=== PATIENT | male | born 1945 | race Caucasian/White ===

== ENCOUNTER 2016-06-03 16:28 | Inpatient (IN) | payer MEDICAID, OTHER ==
[~2016-06-03] VITALS: Ht 147.3 cm; Wt 60.0 kg
[~2016-06-03 16:28] MED LIST: ALBU8.5H3 INH; ASPI-664 PO; BEN25 PO; BUPR-34 PO; BUTA1CAP38 PO; CALC500T99 PO; CHLO15MO MM; CHOL2000 PO; CITA-104 PO; CLON0.5T4 PO; CRES10 PO; CYAN100080 PO; DICL100G37 TOP; DIPH1TAB25 PO; GABA-526 PO; GLUC1CAP48 PO; LIDO700A6 TD; LISI40TA9 PO; MORP60TA37 PO; PANT40TA3 PO; PRED50 PO; PROM6.2514 PO; TIOT18CA IH; TRAZ150T65 PO; TRIUMEQ PO
[2016-06-03] MEDS ORDERED: NITROGLYCERIN 2% 1 GM OINT PKT TD STA (17:40)
[2016-06-03] MEDS ORDERED: ASPIRIN 81 MG TAB PO STA (17:40)
[2016-06-03] MEDS: NITROGLYCERIN (SL) 0.4 MG TAB SL PRN ×2 (17:58→18:06)
[2016-06-03 18:09] LABS: CHLORIDE 103 mmol/L (97-110); POTASSIUM 3.7 mmol/L (3.5-5.1); SODIUM 138 mmol/L (135-144)
[2016-06-03 18:10] LABS: INR 0.97; PROTIME 12.9 Sec (12.2-14.2)
[2016-06-03 18:11] LABS: PARTIAL THROMBOPLASTIN TIME 36.5 Sec (25.0-35.0)
[2016-06-03 18:12] LABS: ANION GAP 17 (8-16); BLOOD UREA NITROGEN 25 mg/dl (7-20); CALCIUM 8.7 mg/dl (8.4-10.2); CARBON DIOXIDE 22 mmol/L (21-31); CREATININE 1.19 mg/dl (0.61-1.24); GLUCOSE 90 mg/dl (70-220)
[2016-06-03] MEDS ORDERED: ABAC1TAB12 PO (18:21)
[2016-06-03] MEDS ORDERED: VITA1TAB83 PO (18:23)
[2016-06-03] MEDS ORDERED: CITA-104 PO (18:23)
[2016-06-03 18:24] LABS: EOSINOPHILS # 0.5 10^3/ul (0.0-0.5); EOSINOPHILS % 5.6 % (0.0-7.0); HEMATOCRIT 36.4 % (42.0-52.0); HEMOGLOBIN 12.1 g/dl (14.0-18.0); LYMPHOCYTES # 1.9 10^3/ul (0.8-2.9); LYMPHOCYTES % 23.1 % (15.0-51.0); MEAN CORPUSCULAR HEMOGLOBIN 31.2 pg (29.0-33.0); MEAN CORPUSCULAR HGB CONC 33.3 g/dl (32.0-37.0); MEAN CORPUSCULAR VOLUME 93.8 fl (82.0-101.0); MEAN PLATELET VOLUME 7.3 fl (7.4-10.4); MONOCYTE # 0.3 10^3/ul (0.3-0.9); MONOCYTES % 3.2 % (0.0-11.0); NEUTROPHIL # 5.6 10^3/ul (1.6-7.5); NEUTROPHILS % 68.1 % (39.0-77.0); PLATELET COUNT 281 10^3/UL (140-440); RED BLOOD COUNT 3.88 10^6/ul (4.70-6.10); UNCORRECTED WBC 8.3 10^3/ul (4.8-10.8); WHITE BLOOD COUNT 8.3 10^3/ul (4.8-10.8)
[2016-06-03] MEDS ORDERED: HYDR12.58 PO (18:24)
[2016-06-03] MEDS ORDERED: LORA10TA3 PO (18:24)
[2016-06-03] MEDS ORDERED: SOLI5TAB5 PO (18:24)
[2016-06-03] MEDS ORDERED: TOPI100T42 PO (18:25)
[2016-06-03] MEDS ORDERED: ONDA4TAB8 PO (18:26)
[2016-06-03] MEDS ORDERED: ROSU20TA PO (18:26)
[2016-06-03 18:27] LABS: CONDITION 1
[2016-06-03] MEDS ORDERED: OXYC15TA PO (18:27)
[2016-06-03] MEDS ORDERED: OMEG-135 PO (18:28)
[2016-06-03] MEDS ORDERED: MORP-58 PO (18:28)
[2016-06-03] MEDS ORDERED: BENA40TA41 PO (18:29)
[2016-06-03] MEDS ORDERED: MIRT15TA5 PO (18:29)
[2016-06-03] MEDS ORDERED: FLUC200T52 PO (18:30)
[2016-06-03 18:44] LABS: TROPONIN-I < 0.012 ng/ml (0.00-0.12)
--- NOTE | 2016-06-03 19:21 | RADRPT ---
PROCEDURE: XR Chest. CLINICAL INDICATION: Chest pain. TECHNIQUE: Single frontal chest x-ray. COMPARISON: None available. FINDINGS: The cardiomediastinal silhouette is unremarkable. Aortic atherosclerotic vascular calcifications are identified. There are bilateral low lung volumes with vascular crowding and mild bibasilar atelectasis. No pneum othorax, pleural effusion or consolidation is seen. No acute osseous abnormality is noted. IMPRESSION: 1. Low lung volumes with vascular crowding and mild bibasilar atelectasis. 2. Aortic atherosclerosis. RPTAT: HFN .Shelby Ellison MD, MD Date Time Electronically viewed and signed by .Shelby Ellison MD, MD on 06/03/2016 19:21 .N/
--- NOTE | 2016-06-03 20:28 | ERA ---
ER Documentation Chief Complaint Date/Time DATE: 06/03/16 TIME: 20:26 Chief Complaint SOB WITH MOD DISTRESS FOR 4 DAYS. GETTING WORSE TODAY.. HPI Patient is a 71-year-old female with hypertension, stroke, and smoking who presents with chest pain. The patient has 3 weeks of chest pain that has been worsening. Today the patient passed out. He has had nausea but no vomiting. The chest pain is midsternal. He is speaking in full sentences. Upon review of old medical records the patient one previous visit to the ER 2014. ROS All systems reviewed and are negative except as per history of present illness. Medications Home Meds Reported Medications Fluconazole* (Fluconazole*) 200 Mg Tablet, 200 MG PO Q7DAYS, TAB 06/03/16 Mirtazapine* (Mirtazapine*) 15 Mg Tablet, 15 MG PO HS, TAB 06/03/16 Benazepril Hcl* (Benazepril Hcl*) 40 Mg Tablet, 40 MG PO DAILY, #30 TAB 06/03/16 [place]-3 Fatty Acids/Fish Oil (Fish Oil 1,000 mg Capsule) 1 Each Capsule, 1 EACH PO BID, CAP 06/03/16 Morphine Sulfate* (Oramorph SR*) 30 Mg Tablet.sa, 30 MG PO QHS, TAB.SA 06/03/16 Oxycodone Hcl* (IR) (Oxycodone Hcl*) 15 Mg Tablet, 15 MG PO Q4H Y for PAIN, TAB 06/03/16 Ondansetron Hcl* (Zofran*) 4 Mg Tablet, 4 MG PO Q6H Y for NAUSEA AND OR VOMITING , TAB 06/03/16 Rosuvastatin Calcium* (Crestor*) 20 Mg Tablet, 20 MG PO DAILY, #30 TAB 06/03/16 Topiramate* (Topamax*) 100 Mg Tablet, 100 MG PO BID, TAB 06/03/16 Solifenacin* (Vesicare*) 5 Mg Tablet, 5 MG PO DAILY, TAB 06/03/16 Hydrochlorothiazide* (Hydrochlorothiazide*) 12.5 Mg Tablet, 12.5 MG PO QAM, #30 TAB 06/03/16 Loratadine* (Loratadine*) 10 Mg Tablet, 10 MG PO DAILY, #30 TAB 06/03/16 Citalopram Hydrobromide* (Citalopram Hydrobromide*) 40 Mg Tablet, 40 MG PO DAILY , #30 TAB 06/03/16 Vitamin B Complex (B Complex # 1) 1 Each Tablet, 1 EACH PO DAILY, TAB 06/03/16 Abacavir/Dolutegravir/Lamivudi (Triumeq Tablet) 1 Each Tablet, 1 EACH PO DAILY, TAB TRIUMEQ 600-50-300 MG 06/03/16 Bupropion Hcl* (Wellbutrin SR*) 150 Mg Tablet.sa, 150 MG PO QAM, TAB.SA 06/14/14 Pantoprazole* (Protonix*) 40 Mg Tablet.dr, 40 MG PO DAILY, TAB 06/14/14 Gabapentin* (Gabapentin*) 600 Mg Tablet, 1200 MG PO QHS Y for NERVE PAIN, TAB 06/14/14 Aspirin* (Aspirin* EC) 81 Mg Tablet.dr, 81 MG PO DAILY, TAB 06/14/14 Discontinued Reported Medications Promethazine Hcl* (Promethazine Hcl* Syrup) 6.25 Mg/5 Ml Syrup, 6.25 MG PO BID Y for COUGH, ML 06/14/14 Diphenoxylate Hcl-Atropine* (Lomotil*) 1 Tab Tab, 1-2 TAB PO EACH LOOSE STOOL Y for DIARRHEA, TAB 06/14/14 Morphine Sulfate* (Ms Contin*) 60 Mg Tablet.sa, 60 MG PO Q12 Y for SEVERE PAIN LEVEL 7-10, TAB.SA 06/14/14 Cholecalciferol* (Vitamin D3*) 2,000 Unit Cap, 2000 UNIT PO DAILY, CAP 06/14/14 Chlorhexidine Gluconate* (Peridex*) 480 Ml Mouthwash, 15 ML MM QID, ML 06/14/14 Rmtpltngvi-Fqzzzyyofbulf-Iottquga* (Fioricet*) 50-300-40 Mg Capsule, 1-2 CAP PO BID Y for MIGRANE, CAP 06/14/14 Diclofenac Sodium* (Voltaren* Gel) 1% -100 Gm Gel, 1 APPLIC TOP TID, TUB 06/14/14 Cyanocobalamin* (Vitamin B-12*) 1,000 Mcg Tablet.sa, 1000 MCG PO ONCE MONTHLY, TAB 06/14/14 Lidocaine 5%* (Lidoderm 5%*) 5% - Patch Adh..patch, 1 PATCH TD DAILY, PATCH 06/14/14 Tiotropium [place]* (Spiriva*) 18 Mcg Cap.w.dev, 1 INH IH DAILY, EA 06/14/14 Albuterol Sulfate* (Proair HFA*) 8.5 Gm Hfa.aer.ad, 2 PUFF INH Q4H Y for WHEEZING AND SOB, INH 06/14/14 Diphenhydramine Hcl* (Benadryl*) 25 Mg Cap, 1-2 MG PO QHS Y for ALLERGIC REACTION, CAP 06/14/14 Clonazepam* (Clonazepam*) 0.5 Mg Tablet, 1-2 MG PO BID Y for ANXIETY, TAB 06/14/14 Calcium Carbonate (Baae-Amw-688) 1 Tab Tablet, 1 TAB PO BID 06/14/14 Gluc 2KCL/Chondr/Ash Hy/Hy Ac (GLUCOSAMINE & CHONDROITIN CAP) 1 Each Capsule, 1 EACH PO TID Y for ARTHRITIS 06/14/14 Trazodone Hcl* (Trazodone Hcl*) 150 Mg Tablet, 225 MG PO QHS, TAB 06/14/14 Citalopram Hydrobromide* (Citalopram Hydrobromide*) 40 Mg Tablet, 40 MG PO DAILY , TAB 06/14/14 Rosuvastatin Calcium* (Crestor*) 10 Mg Tablet, 10 MG PO HS, TAB 06/14/14 Lisinopril* (Lisinopril*) 40 Mg Tablet, 40 MG PO DAILY, TAB 06/14/14 [Triumeq] No Conflict Check, PO DAILY for TRIUMEQ 600-50-300 06/14/14 Discontinued Scripts Prednisone (Prednisone) 50 Mg Tab, 50 MG PO DAILY for 7 Days, TAB Prov:RADHA ANNE MD 06/16/14 Allergies Allergies: Coded Allergies: No Known Drug Allergy (Verified Allergy, Severe, 06/03/16) PMhx/Soc History of Surgery: Yes (PROSTATE CA, ) Anesthesia Reaction: No Hx Neurological Disorder: Yes (BULGING DISC) Hx Respiratory Disorders: Yes (COPD) Hx Cardiac Disorders: Yes (S/P STROKE, HTN) Hx Psychiatric Problems: No Hx Miscellaneous Medical Probl: Yes (HIV) Hx Alcohol Use: No Hx Substance Use: No Hx Tobacco Use: Yes Smoking Status: Unknown if ever smoked FmHx Family History: coronary disease Physical Exam Vitals Vital Signs Date Time Temp Pulse Resp B/P Pulse Ox O2 Delivery O2 Flow Rate FiO2 06/03/16 18:32 97.3 82 20 119/73 99 Room Air Nasal Cannula 06/03/16 18:06 83 20 109/63 99 Nasal Cannula 2.0 06/03/16 17:55 Nasal Cannula 2 06/03/16 16:39 97.3 85 22 103/58 98 Physical Exam Const: No acute distress Head: Atraumatic Eyes: Normal Conjunctiva ENT: Normal External Ears, Nose and Mouth. Neck: Full range of motion..~ No meningismus. Resp: Clear to auscultation bilaterally Cardio: Regular rate and rhythm, no murmurs Abd: Soft, non tender, non distended. Normal bowel sounds Skin: No petechiae or rashes Back: No midline or flank tenderness Ext: No cyanosis, or edema Neur: Awake and alert Psych: Anxious Result Diagram: 06/03/16 1745 06/03/16 1745 Results 24 hrs Laboratory Tests Test 06/03/16 17:45 Activated Partial Thromboplast Time 36.5Sec Anion Gap 17 Basophils # 0.010^3/ul Basophils % 0.0% Blood Morphology Comment Blood Urea Nitrogen 25mg/dl Calcium Level 8.7mg/dl Carbon Dioxide Level 22mmol/L Chloride Level 103mmol/L Creatinine 1.19mg/dl Eosinophils # 0.510^3/ul Eosinophils % 5.6% Glucose Level 90mg/dl Hematocrit 36.4% Hemoglobin 12.1g/dl INR International Normalized Ratio 0.97 Lymphocytes # 1.910^3/ul Lymphocytes % 23.1% Mean Corpuscular Hemoglobin 31.2pg Mean Corpuscular Hemoglobin Concent 33.3g/dl Mean Corpuscular Volume 93.8fl Mean Platelet Volume 7.3fl Monocytes # 0.310^3/ul Monocytes % 3.2% Neutrophils # 5.610^3/ul Neutrophils % 68.1% Nucleated Red Blood Cells # 0.010^3/ul Nucleated Red Blood Cells % 0.0/100WBC Platelet Count 77879^3/UL Potassium Level 3.7mmol/L Prothrombin Time 12.9Sec Prothrombin Time Ratio 1.0 Red Blood Count 3.8810^6/ul Red Cell Distribution Width 14.0% Sodium Level 138mmol/L Troponin I < 0.012ng/ml White Blood Count 8.310^3/ul Current Medications Medications (Trade) Dose Ordered Sig/Renee Route PRN Reason Start Time Stop Time Status Last Admin Dose Admin Aspirin (Aspirin) 162 mg ONCE STAT PO 06/03/16 17:40 06/03/16 17:41 DC 06/03/16 17:57 Nitroglycerin (Nitroglycerin 2% Oint) 1 inch ONCE STAT TD 06/03/16 17:40 06/03/16 17:41 DC 06/03/16 17:58 Nitroglycerin (Nitroglycerin (Sl Tab) 0.4 Mg) 1 tab Q5M UP TO 3 DOSES PRN SL CHEST PAIN 06/03/16 18:00 Ondansetron HCl (Zofran Inj) 4 mg ER BRIDGE PRN IV NAUSEA AND/OR VOMITING 06/03/16 20:30 06/04/16 20:29 Acetaminophen (Tylenol Tab) 650 mg ER BRIDGE PRN PO MILD PAIN/FEVER 06/03/16 20:30 06/04/16 20:29 Lorazepam (Ativan) 1 mg ONCE ONCE IV 06/03/16 20:30 06/03/16 20:31 Procedures/MDM EKG read by me: Rate/Rhythm: Right bundle branch block at a rate of 82 Intervals: Normal Impression: Right bundle branch block without evidence of ischemia Chest x-ray shows no pneumonia or pneumothorax per radiology. Smoking Cessation Therapy: Pt. was lectured for greater than 3 minutes on the health risks of continued smoking and the benefits of cessation. Patient is a 8-year-old male presents with chest pain and syncope. The patient will need admission to a telemetry bed. I spoke with Dr. Acosta from the panel team for admission. The patient was given aspirin and nitroglycerin. He will be given Ativan for anxiety. At this point I doubt pneumonia, pneumothorax , pulmonary embolism, or aortic dissection. Departure Diagnosis: Primary Impression: Shortness of breath Additional Impressions: Chest pain Qualified Code: R07.9 - Chest pain, unspecified type Syncope Qualified Code: R55 - Syncope, unspecified syncope type Condition: NATALIA Colunga MD Jun 03, 2016 20:28
[2016-06-03] MEDS ORDERED: LORAZEPAM 2 MG INJ IV ONE (20:30)
[2016-06-03] MEDS ORDERED: ACETAMINOPHEN 325 MG TAB PO PRN ×2 (20:30→21:00)
[2016-06-03] MEDS ORDERED: ONDANSETRON 4 MG INJ IV PRN ×2 (20:30→21:00)
[2016-06-03] MEDS ORDERED: FAMOTIDINE 20 MG TAB PO SCH (21:00)
[2016-06-03] MEDS ORDERED: LORAZEPAM 2 MG INJ IV PRN ×2 (21:00→23:00)
[2016-06-03] MEDS ORDERED: GABAPENTIN 300 MG CAP PO PRN (21:00)
[2016-06-03] MEDS ORDERED: NITROGLYCERIN (SL) 0.4 MG TAB SL PRN (21:00)
[2016-06-03] MEDS ORDERED: ONDANSETRON 4 MG TAB PO PRN (21:00)
[2016-06-03] MEDS ORDERED: morphine 2 MG INJ IV PRN (21:00)
[2016-06-03] MEDS ORDERED: NACL 0.9% 3 ML SYG IV SCH (21:00)
[2016-06-03] MEDS ORDERED: oxyCODONE 15 MG TAB PO PRN (21:00)
[2016-06-03] MEDS ORDERED: DOCUSATE SODIUM 100 MG CAP PO PRN (21:00)
[2016-06-03] MEDS ORDERED: ZOLPIDEM 5 MG TAB PO PRN (21:00)
--- NOTE | 2016-06-03 21:01 | HP ---
Date/Time of Note Date/Time of Note DATE: 06/03/16 TIME: 20:48 Assessment/Plan VTE Prophylaxis VTE Prophylaxis Intervention: heparin Assessment/Plan Assessment/Plan 71 yo male with a past medical history HIV+ last CD4 840 (as per the patient), COPD, essential hypertension, dyslipidemia, CVA, prostate CA s/p radical prostatectomy, PUD, who presents with chest pain, shortness of breath and syncope. 1. Syncope - vasovagal vs ACS - will admit the patient to telemetry, cycle cardiac markers, check 2D ECHO, TSH/Mag level, morphine/oxygen/NTG SL/Aspirin, serial ekgs, carotid duplex, fall precautions. 2. Diarrhea - will check stool cultures, fecal leukocytes, Ova and parasites, Giardia, CMV, consult ID, check CT abd/pelvis (pending), hold antibiotics, check CDiff antigen 3. HIV + - continue with HAART therapy, check CD4 4. Essential hypertension - HCTZ, Benazepril, prn hydralazine for sbp >160 5. COPD - prn breathing treatments, stable currently 6. Dyslipidemia - hold statin 7. CVA - no residual weakness - ACEI, aspirin, hold statin 8. Prostate CA s/p radical prostatectomy - continue with vesicare 9. PUD - continue with PPI 10. GI ppx - protonix 11. DVT ppx - heparin answered all of his questions. as per clinical course. this history and physical took greater then 45 minutes to complete HPI/ROS Admit Date/Time Admit Date/Time 06/03/2016, 8:48 pm Hx of Present Illness 71 yo male with a past medical history HIV+ last CD4 840 (as per the patient), COPD, essential hypertension, dyslipidemia, CVA, prostate CA s/p radical prostatectomy, PUD, who presents with chest pain, shortness of breath and syncope. Patient states that today, he had two episodes where he lost consciousness, he does not know the length of time he was out. He also complains of substernal, non-radiating chest discomfort. 8/10 in intensity, pressure like sensation, came about when his friend stated that he might have an abdominal aneurysm. No alleviating or exacerbating factors. He claims to have diarrhea for the last three weeks, denies any sick contacts, or recent travel. Otherwise has dizziness, and headache, with constant movement. Denies any urinary irregularities, fevers/chills, or other constitutional symptoms. ED course; NTG, Aspirin, Ativan ROS 14 point review of systems completed, please refer to HPI for any positive findings PMH/Family/Social Past Medical History HIV, COPD, CVA, prostate CA s/p prostatectomy Medical History: coronary artery disease, high cholesterol, hypertension, peptic ulcer disease Past Surgical History s/p radical prostatectomy Family History Significant Family History: diabetes (father), other (mother diseased 1994) Social History Alcohol Use: none Smoking Status: Former smoker Drug Use: none Exam/Review of Systems Vital Signs Vitals Vital Signs Date Time Temp Pulse Resp B/P Pulse Ox O2 Delivery O2 Flow Rate FiO2 06/03/16 18:32 97.3 82 20 119/73 99 Room Air Nasal Cannula 06/03/16 18:06 2.0 Exam Exam Gen Luli: mild discomfort 2/2 to chest pain, AAOx4 HEENT: NC/AT, PERRLA, EOMI, no pharyngeal erythema, no tonsillar exudates, no lymphadenopathy, no JVD, no carotid bruits NECK: supple, no thyromegaly THORAX: symmetrical, no obvious deformities CV: S1S2, RRR, no M/G/R Lungs: CTAB no W/C/R/R Abd: soft, NT/ND, +BS, no rebound, no guarding, neg HSM EXT: no edema, no ecchymosis, no clubbing, FROM Neuro: CN II-XII grossly intact, no focal deficits Psych: anxious Skin: C/D/I Labs Result Diagram: 06/03/165 06/03/161744 Medications Medications Current Medications Lorazepam (Ativan) 0.5 mg Q6H PRN IV ANXIETY; Start 06/03/16 at 21:00; Status UNV Ondansetron HCl (Zofran Inj) 4 mg Q6H PRN IV NAUSEA AND/OR VOMITING; Start at 21:00; Status UNV Nitroglycerin (Nitroglycerin (Sl Tab) 0.4 Mg) 1 tab Q5M PRN SL CHEST PAIN; Start 06/03/16 at 21:00; Status UNV Acetaminophen (Tylenol Tab) 650 mg Q6H PRN PO PAIN LEVEL 1-3 OR FEVER; Start at 21:00; Status UNV Morphine Sulfate (morphine) 2 mg Q4H PRN IV PAIN LEVEL 7-10; Start 06/03/16 at 21:00; Status UNV Zolpidem Tartrate (Ambien) 5 mg QHS PRN PO INSOMNIA; Start 06/03/16 at 21:00; Status UNV Docusate Sodium (Colace) 100 mg Q12H PRN PO CONSTIPATION; Start 06/03/16 at 21: 00; Status UNV Famotidine (Pepcid) 20 mg Q12 PO ; Start 06/03/16 at 21:00; Status UNV Heparin Sodium (Porcine) (Heparin (5000 Units/0.5 ml)) 5,000 unit Q12 SC ; Start 06/03/16 at 21:00; Status UNV Aspirin (Halfprin) 81 mg DAILY PO ; Start 06/04/16 at 09:00; Status UNV Benazepril HCl (Lotensin) 40 mg DAILY PO ; Start 06/04/16 at 09:00; Status UNV Bupropion HCl (Wellbutrin Sr) 150 mg QAM PO ; Start 06/04/16 at 09:00; Status UNV Citalopram Hydrobromide (Celexa) 40 mg DAILY PO ; Start 06/04/16 at 09:00; Status UNV Fluconazole (Diflucan) 200 mg Q7D PO ; Start 06/03/16 at 21:00; Status UNV Gabapentin (Neurontin) 1,200 mg QHS PRN PO NERVE PAIN; Start 06/03/16 at 21:00 ; Status UNV Hydrochlorothiazide (Hydrochlorothiazide) 12.5 mg QAM PO ; Start 06/04/16 at 09: 00; Status UNV Loratadine (Claritin) 10 mg DAILY PO ; Start 06/04/16 at 09:00; Status UNV Mirtazapine (Remeron) 15 mg HS PO ; Start 06/03/16 at 21:00; Status UNV Morphine Sulfate (Ms Contin (Er)) 30 mg QHS PO ; Start 06/03/16 at 21:00; Status UNV Ondansetron HCl (Zofran Tab) 4 mg Q6H PRN PO NAUSEA AND/OR VOMITING; Start at 21:00; Status UNV Oxycodone HCl (Roxicodone) 15 mg Q4H PRN PO PAIN; Start 06/03/16 at 21:00; Status UNV Solifenacin (Vesicare) 5 mg DAILY PO ; Start 06/04/16 at 09:00; Status UNV Topiramate (Topamax) 100 mg BID PO ; Start 06/03/16 at 21:00; Status UNV Miscellaneous Information 1 each DAILY PO ; Start 06/04/16 at 09:00; Status UNV Miscellaneous Information 1 each BID PO ; Start 06/03/16 at 21:00; Status UNV Miscellaneous Information 20 mg DAILY PO ; Start 06/04/16 at 09:00; Status UNV Miscellaneous Information 1 each DAILY PO ; Start 06/04/16 at 09:00; Status UNV Procedures Procedures CXR IMPRESSION: 1. Low lung volumes with vascular crowding and mild bibasilar atelectasis. 2. Aortic atherosclerosis. HIMANSHU SALDAÑA MD Jun 03, 2016 21:00
[2016-06-03 22:33] LABS: CREATINE KINASE 373 IU/L (23-200)
[2016-06-03 22:34] LABS: CHOL/HDL RATIO 2.7 RATIO; MAGNESIUM 2.4 mg/dl (1.7-2.5)
[2016-06-03 22:53] LABS: CK-MB 5.71 ng/ml (0.0-2.4); TROPONIN-I < 0.012 ng/ml (0.00-0.12)
--- NOTE | 2016-06-03 22:58 | RADRPT ---
AMENDMENT: 06/03/2016 11:03:18 PM Arley Muñoz M.D Template Error : The study is limited. Only the right carotid artery was evaluated. Disregard the l ast sentence of the body report and last two impression as part of in the normal template which wer e not deleted. The correct impression is: 1. Less than 50% right internal carotid artery stenosis. 2. The left side was not evaluated due to patient cooperation. PROCEDURE: Carotid Doppler ultrasound CLINICAL INDICATION: Carotid stenosis. TECHNIQUE: Carotid duplex criteria: Multiple real time, landaverde scale, and color flow and spectral w aveform analysis Doppler ultrasound images of the carotid bifurcations were obtained. Measurements of carotid stenosis is based on peak systolic and diastolic velocity parameters that correlate the r esidual internal carotid diameter with [place] symptomatic carotid endarterectomy trial (NASC ET) based stenosis levels. COMPARISON: None. FINDINGS: The study is limited due to the patient's motion. Only the right carotid artery was evaluated. On the right, there is heterogeneous smooth plaque at the internal carotid artery bulb . Visual est imate of the plaque is less than 50%. The peak ICA velocity is 85.6 cm/sec. The ICA/CCA ratio there is 0.93. There is no spectral broadening . The external carotid artery is patent. The vertebral artery was not visualized. The left internal carotid artery was not visualized. The external carotid artery is patent. The vertebral artery has antegrade flow. IMPRESSION: 1. Less than 50% stenosis of the right internal carotid artery. 2. Less than 50% stenosis of the left internal carotid artery. 3. Antegrade flow in the vertebral arteries. Physician Day Date Time Electronically viewed and signed by Physician Day on 06/03/2016 23:03 TATUM/
[2016-06-03 23:06] LABS: THYROID STIMULATING HORMONE 1.44 MIU/L (0.465-4.680)
[2016-06-03] MEDS: HEPARIN 5,000 UNIT/0.5 ML SYG SC SCH (23:39)
[2016-06-03] MEDS ORDERED: HALOPERIDOL 5 MG INJ ONE (23:49)
--- NOTE | 2016-06-03 23:50 | RADRPT ---
PROCEDURE: CT ABDOMEN/PELVIS WITHOUT CONTRAST CLINICAL INDICATION: 71-year-old male with abdominal pain and diarrhea. TECHNIQUE: The study was performed utilizing a [employer] VCT 64-slice CT scanner. Direct axia l sections were obtained through the abdomen and pelvis without the use of intravenous contrast mate rial. Sagittal and coronal reformations were obtained. The images were reviewed on a PACS workstatio n. CTD/vol = 11.3 mGy; Total Exam DLP = 676.6 mGy-cm. COMPARISON: None. FINDINGS: There is motion/respiratory artifact limiting the evaluation. Extensive coronary artery calcificati ons are seen. The lung bases are unremarkable. There is no evidence for significant pleural effusi on. The liver has a normal size and contour without focal areas of abnormal density. No intrahepati c nor extrahepatic biliary ductal dilatation is seen. The gallbladder demonstrates no wall thickenin g nor pericholecystic fluid. No biliary stones are evident. The pancreas is without areas of abnorma l attenuation. This spleen is identified and has a normal size without abnormal density. The adrena l glands are unremarkable. The kidneys are without abnormal density. No hydroureteronephrosis nor ne phroureterolithiasis is evident. The urinary bladder is distended with urine. There is retained stoo l identified throughout the colon most prominently within the ascending and transverse colon without gross bowel obstruction. The appendix is not visualized however there is no periappendiceal inflammatory changes. There is no significant free fluid. The aortoiliac vessels are diffusely calci fied with focal mid abdominal aortic aneurysmal dilatation measuring 3.3 x 3.1 cm and distal abdomin al aortic aneurysmal dilatation measuring 3.1 x 3.1 cm. Degenerative changes are present throughout the spine. IMPRESSION: 1. Limited evaluation secondary to motion/respiratory artifact. 2. Coronary artery calcifications. 3. Retained stool throughout the colon without gross bowel obstruction. 4. Focal mid abdominal and distal abdominal aortic aneurysms with maximal transverse dimensions of 3.3 and 3.1 cm respectively. 5. Degenerative changes within the spine. .Marcus Rodas MD, Date Time Electronically viewed and signed by .Marcus Rodas MD, on 06/03/2016 23:50 .[place]
[2016-06-03 23:57] VITALS: TEMP 98
[2016-06-04] VITALS (11 sets, daily range): BP systolic 92–111; BP diastolic 60–70; PULSE 68–89; RESP 18–20; Ht 147.3 cm; Wt 60.0 kg
[2016-06-04] MEDS ORDERED: HALOPERIDOL 5 MG INJ IM ONE ×2
[2016-06-04] MEDS: MIRTAZAPINE 15 MG TAB PO SCH ×2 (00:30→20:45)
[2016-06-04] MEDS: morphine (ER) 30 MG TAB PO SCH ×2 (00:30→20:56)
[2016-06-04] MEDS: TOPIRAMATE 100 MG TAB PO SCH ×3 (00:30→20:44)
[2016-06-04] MEDS: FISH OIL 1,000 MG CAP PO SCH ×3 (01:00→20:45)
[2016-06-04 01:25] LABS: CREATINE KINASE 400 IU/L (23-200)
[2016-06-04 01:37] LABS: CK-MB 5.87 ng/ml (0.0-2.4)
[2016-06-04 01:43] LABS: TROPONIN-I < 0.012 ng/ml (0.00-0.12)
[2016-06-04] MEDS: PANTOPRAZOLE 40 MG INJ IV SCH (06:32)
[2016-06-04 07:22] LABS: POTASSIUM 4.1 mmol/L (3.5-5.1)
[2016-06-04 07:25] LABS: CALCIUM 9.2 mg/dl (8.4-10.2); CREATININE 1.21 mg/dl (0.61-1.24)
[2016-06-04 07:31] LABS: BASOPHILS % 0.7 % (0.0-2.0); EOSINOPHILS # 0.5 10^3/ul (0.0-0.5); EOSINOPHILS % 7.8 % (0.0-7.0); HEMATOCRIT 36.2 % (42.0-52.0); HEMOGLOBIN 12.5 g/dl (14.0-18.0); LYMPHOCYTES # 1.6 10^3/ul (0.8-2.9); LYMPHOCYTES % 24.1 % (15.0-51.0); MEAN CORPUSCULAR HEMOGLOBIN 32.6 pg (29.0-33.0); MEAN CORPUSCULAR HGB CONC 34.6 g/dl (32.0-37.0); MEAN CORPUSCULAR VOLUME 94.3 fl (82.0-101.0); MEAN PLATELET VOLUME 7.6 fl (7.4-10.4); MONOCYTE # 0.6 10^3/ul (0.3-0.9); MONOCYTES % 8.7 % (0.0-11.0); NEUTROPHILS % 58.7 % (39.0-77.0); PLATELET COUNT 255 10^3/UL (140-440); RED BLOOD COUNT 3.84 10^6/ul (4.70-6.10); RED CELL DISTRIBUTION WIDTH 13.8 % (11.5-14.5); UNCORRECTED WBC 6.8 10^3/ul (4.8-10.8); WHITE BLOOD COUNT 6.8 10^3/ul (4.8-10.8)
[2016-06-04 07:46] LABS: CONDITION 1
[2016-06-04 08:01] LABS: CREATINE KINASE 472 IU/L (23-200)
[2016-06-04 08:07] LABS: CK-MB 5.38 ng/ml (0.0-2.4)
[2016-06-04 08:10] LABS: TROPONIN-I < 0.012 ng/ml (0.00-0.12)
[2016-06-04] MEDS: BENAZEPRIL 40 MG TAB PO SCH (09:00)
[2016-06-04] MEDS: HYDROCHLOROTHIAZIDE 12.5 MG CAP PO SCH (09:00)
[2016-06-04] MEDS: ASPIRIN (EC) 81 MG TAB PO SCH (09:17)
[2016-06-04] MEDS: LORATADINE 10 MG TAB PO SCH (09:17)
[2016-06-04] MEDS: CITALOPRAM 20 MG TAB PO SCH (09:17)
[2016-06-04] MEDS: HEPARIN 5,000 UNIT/0.5 ML SYG SC SCH ×2 (09:23→20:54)
[2016-06-04] MEDS: BUPROPION (SR) 150 MG TAB PO SCH (11:57)
[2016-06-04] MEDS: VITAMIN B COMPLEX/VIT C CAP PO SCH (11:57)
[2016-06-04] MEDS: SOLIFENACIN 5 MG TAB PO SCH (11:57)
[2016-06-04] MEDS: DOLUTEGRAVIR SODIUM 50 MG TABLET PO SCH ×2 (11:57→20:47)
--- NOTE | 2016-06-04 13:27 | CONS ---
DATE OF ADMISSION: 06/03/2016 DATE OF CONSULTATION: 06/04/2016 TYPE OF CONSULTATION: Infectious Disease. REASON FOR CONSULTATION: Antibiotic management. HISTORY OF PRESENT ILLNESS: Jose is a 71-year-old male, with a past history of HIV positive, cherrie rojas CD4 840, as per patient, who comes in now with chest pain, shortness of breath and syncope. His past problems include: 1. HIV. 2. COPD. 3. Essential hypertension. 4. Dyslipidemia. 5. CVA. 6. Prostate CA, status post radical prostatectomy. 7. Peptic ulcer disease. The patient presents with chest pain, shortness of breath and syncope. On the day of admission, he had 2 episodes where he lost consciousness. He also complains of substernal, nonradiating chest dis comfort, 8/10 in intensity, pressure-like sensations which came about when his friend stated that he might have an abdominal aneurysm. Has had diarrhea for the last 3 weeks. Denies any sick contacts . Denies any urinary irregularities, fevers or chills. PAST MEDICAL HISTORY: As outlined. He has coronary artery disease, hypercholesterolemia, as well a s hypertension and peptic ulcer disease. PAST SURGICAL HISTORY: Status post prostatectomy. FAMILY HISTORY: His father had diabetes. SOCIAL HISTORY: He is a former smoker, he does not drink or abuse drugs. ALLERGIES: NONE TO PENICILLIN, SULFA OR FOODS. MEDICATIONS: Per chart. REVIEW OF SYSTEMS: As per HPI. PHYSICAL EXAMINATION GENERAL: The patient is a well-developed, well-nourished male, alert, responsive, in no acute distr ess. VITAL SIGNS: Stable. He is afebrile. SKIN: Without generalized rash. HEENT: Within normal limits. NECK: Supple. LYMPHATIC: Lymph nodes, none palpable. CHEST: Decreased breath sounds at the bases. HEART: Without murmur or gallop. ABDOMEN: Soft, nontender, without organosplenomegaly or masses. EXTREMITIES: Without cyanosis, clubbing or edema. RECTAL: Deferred. GENITAL: Deferred. NEUROLOGIC: No focal neurological abnormalities. ANCILLARY LABORATORY DATA: White count is 8.3; H and H of 12.1 and 36.4; platelet count 281,000. B UN and creatinine are 25/1.19. CHEST X-RAY: Shows low volume with vascular crowding. ASSESSMENT: The patient is having diarrhea. We will check stool cultures, fecal leukocytes, ova an d parasites, Giardia, cytomegalovirus. ID was asked to consult. A CT scan of the abdomen and pelvi s was ordered and shows limited evaluation, secondary motion respiratory artifact, coronary artery c alcifications, retained stool, focal mid-abdominal and distal abdominal aortic aneurysms with gris l transverse dimensions of 3.3 and 3.1, respectively. Degenerative changes within the spine. PLAN: We will observe the patient currently off antibiotic therapy. Await workup in terms of his d iarrhea. Make sure he is on appropriate antivirals. Right now, he is on Tivicay or dolutegravir 50 mg a day and he is also on Epzicom or abacavir/lamivudine. I will dictate my findings to the hospitalist. Dictated By: DANTE DUONG MD, JD/NATALIA Conf#: [id number] DID#: [id number]
--- NOTE | 2016-06-04 13:30 | RADRPT ---
Echocardiogram Report Patient Name: NADINE YANEZ Gender: Male Date: 1945 Study Date: 04-Jun-2016 Dry Cleaner Helper: Teo Massey [facility] Location: 524 Ref. Physician: HIMANSHU SALDAÑA Quality: Good Procedures: Transthoracic echocardiogram with complete 2D, M-Mode, and doppler examination. Indications: Chest Pain. 2D/M Mode Doppler Measurement Value Normal Ranges Measurement Value Normal Ranges LVIDd 2D 4.8 3.5 - 5.6 cm AV Peak Cheo 1.1 m/sec LVIDs 2D 1.7 2.1 - 4.1 cm AV Peak PG 5.3 mmHg LVPWd 2D 0.8 0.6 - 1.1 cm LVOT Peak Cheo 1.0 m/sec IVSd 2D 0.8 0.6 - 1.1 cm LVOT Peak PG 3.7 mmHg AoR Diam 2D 3.3 2.0 - 3.7 cm MV E Peak Cheo 0.5 m/sec EDV 2D 107.3 cm3 MV A Peak Cheo 0.8 m/sec ESV 2D 5.0 cm3 MV E/A 0.7 LA Dimen 2D 3.5 2.3 - 4.0 cm MV Decel Time 220 msec MV Decel [place] 2 MV E/A 0.7 TR Peak Cheo 1.5 m/sec TR Peak PG 8.9 mmHg RVSP 12.0 mmHg Findings Left Ventricle: Normal left ventricular systolic function. Normal left ventricular cavity size. Normal left ventricular wall thickness. Ejection fraction is visually estimated at 6065 %. Tissue Doppler/Mitral Doppler indices are consistent with impaired relaxation (Stage I diastolic dysfunction). Right Ventricle: Normal right ventricular size. Normal right ventricular systolic function. Left Atrium: The left atrium is normal in size. Right Atrium: The right atrium is normal in size. Mitral Valve: Normal appearance and function of the mitral valve with trace physiologic regurgitation. Aortic Valve: Normal appearance of the aortic valve. No significant aortic stenosis or insufficiency. Tricuspid Valve: Normal appearance of the tricuspid valve. Estimated peak PA systolic pressure 12 mmHg. There is trace tricuspid regurgitation. Pericardium: Normal pericardium with no significant pericardial effusion. Aorta: Normal aortic root. IVC: Normal size and normal respiratory collapse consistent with normal right atrial pressure. Conclusions 1.The left ventricle is normal in size and systolic function. 2.Estimated left ventricular ejection fraction of 60-65%. 3.Mild left ventricular diastolic dysfunction. Electronically Signed By: Filipe Downing 04-Jun-2016 13:30:22 -0800 Patient Name: NADINE YANEZ Study Date: 04-Jun-2016 [id number]
--- NOTE | 2016-06-04 14:48 | PN ---
Date/Time of Note Date/Time of Note DATE: 06/04/16 TIME: 14:43 Assessment/Plan VTE Prophylaxis VTE Prophylaxis Intervention: LMWH Lines/Catheters IV Catheter Type (from Nrs): Saline Lock Urinary Cath still in place: No Assessment/Plan Assessment/Plan 1. Syncope, cardiolology consult 2. Abdominal pain, constipation related, laxatives 3. HIV + - continue with HAART therapy, check CD4 4. Essential hypertension - HCTZ, Benazepril, prn hydralazine for sbp >160 5. COPD - prn breathing treatments, stable currently 6. Dyslipidemia - hold statin 7. CVA - no residual weakness - ACEI, aspirin, hold statin 8. Prostate CA s/p radical prostatectomy - continue with vesicare 9. PUD - continue with PPI 10. AAA, follow up with PCP Subjective 24 Hr Interval Summary Free Text/Dictation Jonathan episodes of loss of consciousness while he was watching TV, unknown how long it was. He had diffuse abdominal pain, vomited once, no diarrhea. no fever or chills Exam/Review of Systems Vital Signs Vitals Vital Signs Date Time Temp Pulse Resp B/P Pulse Ox O2 Delivery O2 Flow Rate FiO2 06/04/16 12:20 72 06/04/16 11:00 98.0 20 105/70 96 06/04/16 01:00 Nasal Cannula 2.0 Intake and Output 06/03/16 06/03/16 06/04/16 15:00 23:00 07:00 Intake Total 0 ml Balance 0 ml Exam Constitutional: alert, oriented, well developed Psych: nl mood/affect, no complaints Head: atraumatic, normocephalic Eyes: EOMI, nl conjunctiva, nl lids ENMT: mucosa pink and moist, nl external ears & nose, nl lips & teeth, nl nasal mucosa & septum Neck: non-tender, supple Respiratory: clear to auscultation, normal air movement, No congested cough, No diminished breath sounds, No intercostal retraction, No labored breathing, No respirations, No tactile fremitus, No wheezing Cardiovascular: nl pulses, other, regular rate and rhythm, No S3, No S4, No bruits, No diastolic murmur, No edema, No gallop, No irregular rhythm, No jugular venous distention (JVD), No murmurs/extra sounds, No rub, No systolic murmur Gastrointestinal: nl liver, spleen, non-tender, soft, tender (diffuse mild tenderness), No ascites, No bowel sounds, No distended, No firm, No hepatomegaly, No mass , No rebound or guarding, No splenomegaly, No surgical scars Musculoskeletal: nl extremities to inspection Extremities: normal pulses Neurological: RE EXAMINER II-XII intact, nl mental status, nl speech, nl strength Skin: nl turgor, rash or lesions Results Result Diagram: 06/04/1660606/04/16606 Results 24 hrs Laboratory Tests Test 06/03/16 17:45 06/03/16 20:59 06/04/16 00:35 06/04/16 06:07 Activated Partial Thromboplast Time 36.5 H Anion Gap 17 H 15 Basophils # 0.0 0.0 Basophils % 0.0 0.7 Blood Morphology Comment Blood Urea Nitrogen 25 H 23 H Calcium Level 8.7 9.2 Carbon Dioxide Level 22 23 Chloride Level 103 110 Creatinine 1.19 1.21 Eosinophils # 0.5 0.5 Eosinophils % 5.6 7.8 H Glucose Level 90 90 Hematocrit 36.4 L 36.2 L Hemoglobin 12.1 L 12.5 L INR International Normalized Ratio 0.97 Lymphocytes # 1.9 1.6 Lymphocytes % 23.1 24.1 Mean Corpuscular Hemoglobin 31.2 32.6 Mean Corpuscular Hemoglobin Concent 33.3 34.6 Mean Corpuscular Volume 93.8 94.3 Mean Platelet Volume 7.3 L 7.6 Monocytes # 0.3 0.6 Monocytes % 3.2 8.7 Neutrophils # 5.6 4.0 Neutrophils % 68.1 58.7 Nucleated Red Blood Cells # 0.0 0.0 Nucleated Red Blood Cells % 0.0 0.0 Platelet Count 281 255 Potassium Level 3.7 4.1 Prothrombin Time 12.9 Prothrombin Time Ratio 1.0 Red Blood Count 3.88 L 3.84 L Red Cell Distribution Width 14.0 13.8 Sodium Level 138 144 Troponin I < 0.012 < 0.012 < 0.012 < 0.012 White Blood Count 8.3 6.8 Cholesterol Level 144 Cholesterol/HDL Ratio 2.7 Creatine Kinase 373 H 400 H 472 H Creatine Kinase Index 1.5 1.5 1.1 Creatinine Kinase MB (Mass) 5.71 H 5.87 H 5.38 H HDL Cholesterol 52 Hemoglobin A1c 5.6 LDL Cholesterol, Calculated 78 Magnesium Level 2.4 Thyroid Stimulating Hormone (TSH) 1.440 Triglycerides Level 68 Medications Medications Current Medications Ondansetron HCl (Zofran Inj) 4 mg Q6H PRN IV NAUSEA AND/OR VOMITING; Start at 21:00 Nitroglycerin (Nitroglycerin (Sl Tab) 0.4 Mg) 1 tab Q5M PRN SL CHEST PAIN; Start 06/03/16 at 21:00 Acetaminophen (Tylenol Tab) 650 mg Q6H PRN PO PAIN LEVEL 1-3 OR FEVER; Start at 21:00 Morphine Sulfate (morphine) 2 mg Q4H PRN IV PAIN LEVEL 7-10; Start 06/03/16 at 21:00 Zolpidem Tartrate (Ambien) 5 mg QHS PRN PO INSOMNIA; Start 06/03/16 at 21:00 Docusate Sodium (Colace) 100 mg Q12H PRN PO CONSTIPATION; Start 06/03/16 at 21: 00 Heparin Sodium (Porcine) (Heparin (5000 Units/0.5 ml)) 5,000 unit Q12 SC Last administered on 06/04/16 09:23; Admin Dose 5,000 UNIT; Start 06/03/16 at 21:00 Aspirin (Halfprin) 81 mg DAILY PO Last administered on 06/04/16 09:17; Admin Dose 81 MG; Start 06/04/16 at 09:00 Benazepril HCl (Lotensin) 40 mg DAILY PO ; Start 06/04/16 at 09:00 Bupropion HCl (Wellbutrin Sr) 150 mg QAM PO Last administered on 06/04/16 11: 57; Admin Dose 150 MG; Start 06/04/16 at 09:00 Citalopram Hydrobromide (Celexa) 40 mg DAILY PO Last administered on 06/04/16 09:17; Admin Dose 40 MG; Start 06/04/16 at 09:00 Fluconazole (Diflucan) 200 mg Q7D PO ; Start 06/03/16 at 21:00; Status UNV Gabapentin (Neurontin) 1,200 mg QHS PRN PO NERVE PAIN; Start 06/03/16 at 21:00 Hydrochlorothiazide (Hydrochlorothiazide) 12.5 mg QAM PO ; Start 06/04/16 at 09: 00 Loratadine (Claritin) 10 mg DAILY PO Last administered on 06/04/16 09:17; Admin Dose 10 MG; Start 06/04/16 at 09:00 Mirtazapine (Remeron) 15 mg HS PO ; Start 06/03/16 at 21:00 Morphine Sulfate (Ms Contin (Er)) 30 mg QHS PO ; Start 06/03/16 at 21:00 Ondansetron HCl (Zofran Tab) 4 mg Q6H PRN PO NAUSEA AND/OR VOMITING; Start at 21:00 Oxycodone HCl (Roxicodone) 15 mg Q4H PRN PO PAIN; Start 06/03/16 at 21:00 Solifenacin (Vesicare) 5 mg DAILY PO Last administered on 06/04/16 11:57; Admin Dose 5 MG; Start 06/04/16 at 09:00 Topiramate (Topamax) 100 mg BID PO Last administered on 06/04/16 11:57; Admin Dose 100 MG; Start 06/03/16 at 21:00 Abacavir/ Lamivudine (Epzicom) 1 tab DAILY PO ; Start 06/04/16 at 09:00 Fish Oil (Fish Oil) 1,000 mg BID PO Last administered on 06/04/16 09:17; Admin Dose 1,000 MG; Start 06/04/16 at 01:00 Atorvastatin Calcium (Lipitor) 80 mg DAILY@21 PO ; Start 06/04/16 at 21:00 Vitamin B Complex/ Vitamin C (Berocca) 1 cap DAILY PO Last administered on 06/04 11:57; Admin Dose 1 CAP; Start 06/04/16 at 09:00 Pantoprazole (Protonix Iv) 40 mg DAILY@06 IV Last administered on 06/04/16 06: 32; Admin Dose 40 MG; Start 06/04/16 at 06:00 Lorazepam (Ativan) 1 mg Q8 PRN IV anxiety Last administered on 06/03/16 23:39 ; Admin Dose 1 MG; Start 06/03/16 at 23:00 Miscellaneous Information (*Order Clarification Bulletin) MEDICATION REQUIRES CLARIFICATI... Q8H XX ; Start 06/04/16 at 01:30 Dolutegravir Sodium (Tivicay) 50 mg DAILY PO Last administered on 06/04/16t 11: 57; Admin Dose 50 MG; Start 06/04/16 at 09:00 JANES LIRA MD Jun 04, 2016 14:48
[2016-06-04 15:25] LABS: CREATINE KINASE 303 IU/L (23-200)
--- NOTE | 2016-06-04 15:37 | CONS ---
Date/Time of Note Date/Time of Note DATE: 06/04/16 TIME: 15: Assessment/Plan Assessment/Plan Chief Complaint/Hosp Course Assessment: Syncope - unclear etiology Abnormal EKG - right bundle branch block, does not require additional work up Abdominal pain and diarrhea HIV Hypertension Dyslipidemia Chronic obstructive pulmonary disease Peptic ulcer disease History of stroke - no residual weakness History of prostate cancer - status post radical prostatectomy Recommendations: -no significant events on telemetry -echocardiogram showed normal LVEF 60-65%, mild diastolic dysfunction, no significant valvular disease -carotid Dopplers showed <50% disease bilaterally -continue aspirin and atorvastatin -continue benazepril -will clarify ? chest pain symptoms when patient is more awake Problems: Consultation Date/Type/Reason Admit Date/Time 06/03/2016, 8:48 pm Type of Consultation: Cardiology Reason for Consultation syncope Referring Provider: JANES LIRA MD Hx of Present Illness The patient is a 71 year-old male with HIV who presented after two episodes of syncope. He may have had chest pain, although upon speaking with the hospitalist , this may have been due to abdominal pain instead. Currently, the patient is lethargic, possibly due to sedating medications he has received. He is unable to provide additional history. Unable to obtain due to patient's mental status. Past Medical History HIV Hypertension Dyslipidemia Chronic obstructive pulmonary disease Peptic ulcer disease History of stroke - no residual weakness History of prostate cancer - status post radical prostatectomy Past Surgical History Past Surgical Hx: other (radical prostatectomy) Family History Significant Family History: diabetes Social History Alcohol Use: none Smoking Status: Former smoker Drug Use: none Exam/Review of Systems Vital Signs Vitals Vital Signs Date Time Temp Pulse Resp B/P Pulse Ox O2 Delivery O2 Flow Rate FiO2 06/04/16 12:20 72 06/04/16 11:00 98.0 20 105/70 96 06/04/16 09:45 Nasal Cannula 2.0 Intake and Output 06/03/16 06/03/16 06/04/16 15:00 23:00 07:00 Intake Total 0 ml Balance 0 ml Exam Constitutional: other (lethargic) Psych: no complaints Head: atraumatic, normocephalic Eyes: nl conjunctiva, nl lids ENMT: nl external ears & nose, nl nasal mucosa & septum Neck: non-tender, supple, No jvd Respiratory: clear to auscultation, normal air movement Cardiovascular: regular rate and rhythm Gastrointestinal: non-tender, soft Musculoskeletal: nl extremities to inspection Extremities: No clubbing, No cyanosis, No edema Neurological: lethargic Results Result Diagram: 06/04/16 0607 06/04/16 0607 Results 24 hrs Laboratory Tests Test 06/03/16 17:45 06/03/16 20:59 06/04/16 00:35 06/04/16 06:07 Activated Partial Thromboplast Time 36.5 H Anion Gap 17 H 15 Basophils # 0.0 0.0 Basophils % 0.0 0.7 Blood Morphology Comment Blood Urea Nitrogen 25 H 23 H Calcium Level 8.7 9.2 Carbon Dioxide Level 22 23 Chloride Level 103 110 Creatinine 1.19 1.21 Eosinophils # 0.5 0.5 Eosinophils % 5.6 7.8 H Glucose Level 90 90 Hematocrit 36.4 L 36.2 L Hemoglobin 12.1 L 12.5 L INR International Normalized Ratio 0.97 Lymphocytes # 1.9 1.6 Lymphocytes % 23.1 24.1 Mean Corpuscular Hemoglobin 31.2 32.6 Mean Corpuscular Hemoglobin Concent 33.3 34.6 Mean Corpuscular Volume 93.8 94.3 Mean Platelet Volume 7.3 L 7.6 Monocytes # 0.3 0.6 Monocytes % 3.2 8.7 Neutrophils # 5.6 4.0 Neutrophils % 68.1 58.7 Nucleated Red Blood Cells # 0.0 0.0 Nucleated Red Blood Cells % 0.0 0.0 Platelet Count 281 255 Potassium Level 3.7 4.1 Prothrombin Time 12.9 Prothrombin Time Ratio 1.0 Red Blood Count 3.88 L 3.84 L Red Cell Distribution Width 14.0 13.8 Sodium Level 138 144 Troponin I < 0.012 < 0.012 < 0.012 < 0.012 White Blood Count 8.3 6.8 Cholesterol Level 144 Cholesterol/HDL Ratio 2.7 Creatine Kinase 373 H 400 H 472 H Creatine Kinase Index 1.5 1.5 1.1 Creatinine Kinase MB (Mass) 5.71 H 5.87 H 5.38 H HDL Cholesterol 52 Hemoglobin A1c 5.6 LDL Cholesterol, Calculated 78 Magnesium Level 2.4 Thyroid Stimulating Hormone (TSH) 1.440 Triglycerides Level 68 Medications Medications Current Medications Ondansetron HCl (Zofran Inj) 4 mg Q6H PRN IV NAUSEA AND/OR VOMITING; Start at 21:00 Nitroglycerin (Nitroglycerin (Sl Tab) 0.4 Mg) 1 tab Q5M PRN SL CHEST PAIN; Start 06/03/16 at 21:00 Acetaminophen (Tylenol Tab) 650 mg Q6H PRN PO PAIN LEVEL 1-3 OR FEVER; Start at 21:00 Morphine Sulfate (morphine) 2 mg Q4H PRN IV PAIN LEVEL 7-10; Start 06/03/16 at 21:00 Zolpidem Tartrate (Ambien) 5 mg QHS PRN PO INSOMNIA; Start 06/03/16 at 21:00 Docusate Sodium (Colace) 100 mg Q12H PRN PO CONSTIPATION; Start 06/03/16 at 21: 00 Heparin Sodium (Porcine) (Heparin (5000 Units/0.5 ml)) 5,000 unit Q12 SC Last administered on 06/04/16 09:23; Admin Dose 5,000 UNIT; Start 06/03/16 at 21:00 Aspirin (Halfprin) 81 mg DAILY PO Last administered on 06/04/16 09:17; Admin Dose 81 MG; Start 06/04/16 at 09:00 Benazepril HCl (Lotensin) 40 mg DAILY PO ; Start 06/04/16 at 09:00 Bupropion HCl (Wellbutrin Sr) 150 mg QAM PO Last administered on 06/04/16 11: 57; Admin Dose 150 MG; Start 06/04/16 at 09:00 Citalopram Hydrobromide (Celexa) 40 mg DAILY PO Last administered on 06/04/16 09:17; Admin Dose 40 MG; Start 06/04/16 at 09:00 Fluconazole (Diflucan) 200 mg Q7D PO ; Start 06/03/16 at 21:00; Status UNV Gabapentin (Neurontin) 1,200 mg QHS PRN PO NERVE PAIN; Start 06/03/16 at 21:00 Hydrochlorothiazide (Hydrochlorothiazide) 12.5 mg QAM PO ; Start 06/04/16 at 09: 00 Loratadine (Claritin) 10 mg DAILY PO Last administered on 06/04/16 09:17; Admin Dose 10 MG; Start 06/04/16 at 09:00 Mirtazapine (Remeron) 15 mg HS PO ; Start 06/03/16 at 21:00 Morphine Sulfate (Ms Contin (Er)) 30 mg QHS PO ; Start 06/03/16 at 21:00 Ondansetron HCl (Zofran Tab) 4 mg Q6H PRN PO NAUSEA AND/OR VOMITING; Start at 21:00 Oxycodone HCl (Roxicodone) 15 mg Q4H PRN PO PAIN; Start 06/03/16 at 21:00 Solifenacin (Vesicare) 5 mg DAILY PO Last administered on 06/04/16 11:57; Admin Dose 5 MG; Start 06/04/16 at 09:00 Topiramate (Topamax) 100 mg BID PO Last administered on 06/04/16 11:57; Admin Dose 100 MG; Start 06/03/16 at 21:00 Abacavir/ Lamivudine (Epzicom) 1 tab DAILY PO ; Start 06/04/16 at 09:00 Fish Oil (Fish Oil) 1,000 mg BID PO Last administered on 06/04/16 09:17; Admin Dose 1,000 MG; Start 06/04/16 at 01:00 Atorvastatin Calcium (Lipitor) 80 mg DAILY@21 PO ; Start 06/04/16 at 21:00 Vitamin B Complex/ Vitamin C (Berocca) 1 cap DAILY PO Last administered on 06/04 11:57; Admin Dose 1 CAP; Start 06/04/16 at 09:00 Pantoprazole (Protonix Iv) 40 mg DAILY@06 IV Last administered on 06/04/16 06: 32; Admin Dose 40 MG; Start 06/04/16 at 06:00 Lorazepam (Ativan) 1 mg Q8 PRN IV anxiety Last administered on 06/03/16 23:39 ; Admin Dose 1 MG; Start 06/03/16 at 23:00 Miscellaneous Information (*Order Clarification Bulletin) MEDICATION REQUIRES CLARIFICATI... Q8H XX ; Start 06/04/16 at 01:30 Dolutegravir Sodium (Tivicay) 50 mg DAILY PO Last administered on 06/04/16 11: 57; Admin Dose 50 MG; Start 06/04/16 at 09:00 Lactulose (Enulose) 20 gm Q8 PO ; Start 06/04/16 at 15:00 SERGIO NOWAK MD Jun 04, 2016 15:37
[2016-06-04 15:39] LABS: CK-MB 3.73 ng/ml (0.0-2.4); TROPONIN-I < 0.012 ng/ml (0.00-0.12)
[2016-06-04] MEDS: LACTULOSE 30ML CUP PO SCH ×2 (17:40→22:00)
[2016-06-04] MEDS: ABACAVIR/LAMIVUDINE TAB PO SCH (20:45)
[2016-06-04] MEDS ORDERED: ATORVASTATIN 80 MG TAB PO SCH (21:00)
[2016-06-05] VITALS (9 sets, daily range): BP systolic 100–121; BP diastolic 66–77; PULSE 70–73; RESP 18–20
[2016-06-05] MEDS: LACTULOSE 30ML CUP PO SCH ×3 (00:34→14:00)
[2016-06-05] MEDS: PANTOPRAZOLE 40 MG INJ IV SCH (06:10)
[2016-06-05] MEDS: CITALOPRAM 20 MG TAB PO SCH (09:05)
[2016-06-05] MEDS: LORATADINE 10 MG TAB PO SCH (09:05)
[2016-06-05] MEDS: VITAMIN B COMPLEX/VIT C CAP PO SCH (09:05)
[2016-06-05] MEDS: FISH OIL 1,000 MG CAP PO SCH (09:05)
[2016-06-05] MEDS: ABACAVIR/LAMIVUDINE TAB PO SCH (09:05)
[2016-06-05] MEDS: DOLUTEGRAVIR SODIUM 50 MG TABLET PO SCH (09:06)
[2016-06-05] MEDS: HYDROCHLOROTHIAZIDE 12.5 MG CAP PO SCH (09:06)
[2016-06-05] MEDS: ASPIRIN (EC) 81 MG TAB PO SCH (09:06)
[2016-06-05] MEDS: SOLIFENACIN 5 MG TAB PO SCH (09:06)
[2016-06-05] MEDS: TOPIRAMATE 100 MG TAB PO SCH (09:06)
[2016-06-05] MEDS: BENAZEPRIL 40 MG TAB PO SCH (09:07)
[2016-06-05] MEDS: HEPARIN 5,000 UNIT/0.5 ML SYG SC SCH (09:09)
[2016-06-05] MEDS: BUPROPION (SR) 150 MG TAB PO SCH (10:09)
--- NOTE | 2016-06-05 14:15 | DS ---
Date/Time of Note Date/Time of Note DATE: 06/05/16 TIME: 14:09 Discharge Summary Admission/Discharge Info Admit Date/Time Jun 03, 2016 at 20:20 Discharge Date/Time Final Diagnosis 1. Syncope, unclear etiology, follow up with PCP 2. Abdominal pain, constipation related, resolved 3. HIV + - continue with HAART therapy 4. Essential hypertension - controlled 5. COPD - prn breathing treatments, stable 6. Dyslipidemia - on statin 7. CVA - no residual weakness - ACEI, aspirin, hold statin 8. Prostate CA s/p radical prostatectomy - continue with vesicare 9. PUD - continue with PPI 10. AAA, follow up with PCP for follow up Patient Condition: Stable Hx of Present Illness 71 yo male with a past medical history HIV+ last CD4 840 (as per the patient), COPD, essential hypertension, dyslipidemia, CVA, prostate CA s/p radical prostatectomy, PUD, who presents with chest pain, shortness of breath and syncope. Patient states that today, he had two episodes where he lost consciousness, he does not know the length of time he was out. He also complains of substernal, non-radiating chest discomfort. 8/10 in intensity, pressure like sensation, came about when his friend stated that he might have an abdominal aneurysm. No alleviating or exacerbating factors. He claims to have diarrhea for the last three weeks, denies any sick contacts, or recent travel. Otherwise has dizziness, and headache, with constant movement. Denies any urinary irregularities, fevers/chills, or other constitutional symptoms. ED course; NTG, Aspirin, Ativan Hospital Course Patient is poor historian. The history of syncope is not clear. Work ups including ECG, echocardiography, carotid ultrasound(<50% lesions) are unremarkable. Patient will follow up with PCP for this. Patient denies that he had chest pain but abdominal pain. For abdominal pain, CT scan indicated diffuse stool in colons. There is focal mid abdominal and distal abdominal aortic aneurysms with maximal transverse dimensions of 3.3 and 3.1 cm respectively. Patient's abdominal pain relieved afgter bowel movement after given laxative. Home Meds Reported Medications Fluconazole* (Fluconazole*) 200 Mg Tablet, 200 MG PO Q7DAYS, TAB 06/03/16 Mirtazapine* (Mirtazapine*) 15 Mg Tablet, 15 MG PO HS, TAB 06/03/16 Benazepril Hcl* (Benazepril Hcl*) 40 Mg Tablet, 40 MG PO DAILY, #30 TAB 06/03/16 [place]-3 Fatty Acids/Fish Oil (Fish Oil 1,000 mg Capsule) 1 Each Capsule, 1 EACH PO BID, CAP 06/03/16 Morphine Sulfate* (Oramorph SR*) 30 Mg Tablet.sa, 30 MG PO QHS, TAB.SA 06/03/16 Oxycodone Hcl* (IR) (Oxycodone Hcl*) 15 Mg Tablet, 15 MG PO Q4H Y for PAIN, TAB 06/03/16 Ondansetron Hcl* (Zofran*) 4 Mg Tablet, 4 MG PO Q6H Y for NAUSEA AND OR VOMITING , TAB 06/03/16 Rosuvastatin Calcium* (Crestor*) 20 Mg Tablet, 20 MG PO DAILY, #30 TAB 06/03/16 Topiramate* (Topamax*) 100 Mg Tablet, 100 MG PO BID, TAB 06/03/16 Solifenacin* (Vesicare*) 5 Mg Tablet, 5 MG PO DAILY, TAB 06/03/16 Hydrochlorothiazide* (Hydrochlorothiazide*) 12.5 Mg Tablet, 12.5 MG PO QAM, #30 TAB 06/03/16 Loratadine* (Loratadine*) 10 Mg Tablet, 10 MG PO DAILY, #30 TAB 06/03/16 Citalopram Hydrobromide* (Citalopram Hydrobromide*) 40 Mg Tablet, 40 MG PO DAILY , #30 TAB 06/03/16 Vitamin B Complex (B Complex # 1) 1 Each Tablet, 1 EACH PO DAILY, TAB 06/03/16 Abacavir/Dolutegravir/Lamivudi (Triumeq Tablet) 1 Each Tablet, 1 EACH PO DAILY, TAB TRIUMEQ 600-50-300 MG 06/03/16 Bupropion Hcl* (Wellbutrin SR*) 150 Mg Tablet.sa, 150 MG PO QAM, TAB.SA 06/14/14 Pantoprazole* (Protonix*) 40 Mg Tablet.dr, 40 MG PO DAILY, TAB 06/14/14 Gabapentin* (Gabapentin*) 600 Mg Tablet, 1200 MG PO QHS Y for NERVE PAIN, TAB 06/14/14 Aspirin* (Aspirin* EC) 81 Mg Tablet.dr, 81 MG PO DAILY, TAB 06/14/14 Discontinued Reported Medications Promethazine Hcl* (Promethazine Hcl* Syrup) 6.25 Mg/5 Ml Syrup, 6.25 MG PO BID Y for COUGH, ML 06/14/14 Diphenoxylate Hcl-Atropine* (Lomotil*) 1 Tab Tab, 1-2 TAB PO EACH LOOSE STOOL Y for DIARRHEA, TAB 06/14/14 Morphine Sulfate* (Ms Contin*) 60 Mg Tablet.sa, 60 MG PO Q12 Y for SEVERE PAIN LEVEL 7-10, TAB.SA 06/14/14 Cholecalciferol* (Vitamin D3*) 2,000 Unit Cap, 2000 UNIT PO DAILY, CAP 06/14/14 Chlorhexidine Gluconate* (Peridex*) 480 Ml Mouthwash, 15 ML MM QID, ML 06/14/14 Swzlnzcotl-Spbfvimkkupxl-Nxwspalh* (Fioricet*) 50-300-40 Mg Capsule, 1-2 CAP PO BID Y for MIGRANE, CAP 06/14/14 Diclofenac Sodium* (Voltaren* Gel) 1% -100 Gm Gel, 1 APPLIC TOP TID, TUB 06/14/14 Cyanocobalamin* (Vitamin B-12*) 1,000 Mcg Tablet.sa, 1000 MCG PO ONCE MONTHLY, TAB 06/14/14 Lidocaine 5%* (Lidoderm 5%*) 5% - Patch Adh..patch, 1 PATCH TD DAILY, PATCH 06/14/14 Tiotropium [place]* (Spiriva*) 18 Mcg Cap.w.dev, 1 INH IH DAILY, EA 06/14/14 Albuterol Sulfate* (Proair HFA*) 8.5 Gm Hfa.aer.ad, 2 PUFF INH Q4H Y for WHEEZING AND SOB, INH 06/14/14 Diphenhydramine Hcl* (Benadryl*) 25 Mg Cap, 1-2 MG PO QHS Y for ALLERGIC REACTION, CAP 06/14/14 Clonazepam* (Clonazepam*) 0.5 Mg Tablet, 1-2 MG PO BID Y for ANXIETY, TAB 06/14/14 Calcium Carbonate ([id number]) 1 Tab Tablet, 1 TAB PO BID 06/14/14 Gluc 2KCL/Chondr/Ash Hy/Hy Ac (GLUCOSAMINE & CHONDROITIN CAP) 1 Each Capsule, 1 EACH PO TID Y for ARTHRITIS 06/14/14 Trazodone Hcl* (Trazodone Hcl*) 150 Mg Tablet, 225 MG PO QHS, TAB 06/14/14 Citalopram Hydrobromide* (Citalopram Hydrobromide*) 40 Mg Tablet, 40 MG PO DAILY , TAB 06/14/14 Rosuvastatin Calcium* (Crestor*) 10 Mg Tablet, 10 MG PO HS, TAB 06/14/14 Lisinopril* (Lisinopril*) 40 Mg Tablet, 40 MG PO DAILY, TAB 06/14/14 [Triumeq] No Conflict Check, PO DAILY for TRIUMEQ 600-50-300 06/14/14 Discontinued Scripts Prednisone (Prednisone) 50 Mg Tab, 50 MG PO DAILY for 7 Days, TAB Prov:RADHA ANNE MD 06/16/14 Follow-up Plan PCP 2 week Pending Labs Laboratory Tests Test 06/04/16 14:28 Creatine Kinase 303IU/L (23-200) Creatine Kinase Index 1.2 Creatinine Kinase MB (Mass) 3.73ng/ml (0.0-2.4) Troponin I < 0.012ng/ml (0.00-0.12) JANES LIRA MD Jun 05, 2016 14:15
--- NOTE | 2016-06-05 14:27 | PN ---
DATE: 06/05/2016 INFECTIOUS DISEASE PROGRESS NOTE SUBJECTIVE: No acute changes. The patient is lying comfortably in bed. No fevers, no diarrhea. LABORATORY DATA: No labs. ANTIMICROBIALS: The patient is on 1. Fluconazole. 2. Epzicom. 3. Tivicay. PHYSICAL EXAMINATION: GENERAL: This is a well-nourished, well-developed, elderly man who is lying comfortably in bed. HEENT: Head atraumatic, normocephalic. Sclerae anicteric. Buccal mucosa pink. NECK: Supple, trachea midline. CHEST: Rise symmetrical. Breath sounds clear. HEART: S1, S2. ABDOMEN: Soft. Bowel sounds present. EXTREMITIES: No cyanosis. ASSESSMENT: 1. Diarrhea, likely secondary to fecal impaction. 2. Human immunodeficiency virus positive with a CD4 count of 840 as per the patient. 3. Hypertension. 4. History of prostate cancer. Status post radical prostatectomy. PLAN: The patient remains stable. No fevers. Cultures are pending. He has no diarrhea presently. He is on lactulose 20 mg q.8 hours. Dictated By: MINAL OLMOS [employer]TER [employer] for DANTE STARKEY/NATALIA Conf#: [id number] DID#: [id number]
[2016-06-05 16:24] LABS: LYMPHOCYTE - CD4/CD8 RATIO 0.88 (0.86-5.00)
[2016-06-10] MEDS ORDERED: FLUCONAZOLE 200 MG TAB PO SCH (09:00)
== END 2016-06-05 16:15 | disposition home or self-care (01) | DRG 977 ==
LOC: E/R 16:28 → TEL 20:20
PROVIDERS: ADMIT Student in an Organized Health Care Education/Training Program; ATTEND Student in an Organized Health Care Education/Training Program
DX: B20 Human immunodeficiency virus [HIV] disease (principal); J44.9 Chronic obstructive pulmonary disease, unspecified; I45.10 Unspecified right bundle-branch block; R55 Syncope and collapse; R07.9 Chest pain, unspecified; R06.02 Shortness of breath; Z86.73 Personal history of transient ischemic attack (TIA), and cerebral infarction without residual deficits; I10 Essential (primary) hypertension; E78.5 Hyperlipidemia, unspecified; Z85.46 Personal history of malignant neoplasm of prostate; R19.7 Diarrhea, unspecified; K27.9 Peptic ulcer, site unspecified, unspecified as acute or chronic, without hemorrhage or perforation; I71.4 Abdominal aortic aneurysm, without rupture
CPT/HCPCS: 36415; 71010; 74176; 80048; 80061; 82550; 82553; 83036; 83735; 84443; 84484; 85025; 85610; 85730; 86360; 86674; 87496; 87536; 93005; 93306; 93880; 96372; 96374; 96376; C9113; J1630; J2060